=== PATIENT | male | born 1990 | race Caucasian/White ===

== ENCOUNTER 2022-06-06 10:28 | Emergency (ER) | payer OTHER ==
[~2022-06-06] VITALS: Ht 185.4 cm; Wt 85.9 kg
[2022-06-06 13:36] VITALS: BP 132/75
[2022-06-06] MEDS ORDERED: KETOROLAC TROMETH 30 MG/ML 1ML VIAL IM ONE (14:30)
[2022-06-06] MEDS ORDERED: DICL75TA2 PO (14:33)
== END 2022-06-06 14:41 | disposition home or self-care (01) ==
LOC: ER 10:28
DX: M25.462 Effusion, left knee (principal)
CPT/HCPCS: 73562; 96372; 99283; J1885